=== PATIENT | female | born 1975 | race Caucasian/White ===

== ENCOUNTER → 2018-11-30 14:16 | Outpatient (CLI) | payer SELFPAY ==
--- NOTE | 2018-11-30 14:21 | US_ITS ---
STUDY: RENAL ULTRASOUND - COMPLETE REASON FOR EXAM: Female, 43 years old. Right flank pain TECHNIQUE: Ultrasound evaluation of the kidneys was performed with real-time and static roth-scale imaging. COMPARISON: None. FINDINGS: RIGHT KIDNEY: Normal location of the right kidney, which is normal in size. The right kidney measures 11.1 x 6.0 x 5.4 cm. There is a normal cortex of the right kidney. The renal cortex measures 1.3 cm. There is no right renal mass or cyst. There are no right renal calculi. There is no right hydronephrosis. DISTAL RIGHT URETER: There is non-visualization of the distal right ureter. There is a visualized right ureteral jet. LEFT KIDNEY: Normal location of the left kidney, which is normal in size. The left kidney measures 12.0 x 5.2 x 4.8 cm. There is a normal cortex of the left kidney. The renal cortex measures 1.3 cm. There is no left renal mass or cyst. There are no left renal calculi. There is no left hydronephrosis. DISTAL LEFT URETER: There is non-visualization of the distal left ureter. There is a visualized left ureteral jet. BLADDER: The distended urinary bladder has a volume of 287 ml. There is a normal wall thickness of the distended urinary bladder. There is no demonstrated mass within the urinary bladder. There are no demonstrated bladder calculi. US/Kidney and Bladder IMPRESSION: Normal ultrasound of the kidneys and urinary bladder. Electronically Signed: Concepción Villagran MD at 17:02 EDT , Service support ,
== END ==
PROVIDERS: Family Provider Family Medicine; PCP Family Medicine; Referring Provider Family Medicine; Visit Provider Family Medicine
DX: N10 Acute pyelonephritis (principal)
CPT/HCPCS: 76770

== ENCOUNTER → 2019-03-12 15:41 | Outpatient (CLI) | payer SELFPAY ==
[2019-03-12 17:42] LABS: Thyroid Stim Hormone (TSH) 1.36 uIU/mL (0.358-3.74)
[2019-03-12 17:52] LABS: Hemoglobin A1c 5.7 % (4.2-6.3)
== END ==
PROVIDERS: Family Provider Family Medicine; PCP Family Medicine; Visit Provider Family Medicine
DX: R73.01 Impaired fasting glucose (principal); N92.1 Excessive and frequent menstruation with irregular cycle
CPT/HCPCS: 36415; 83036; 84443

== ENCOUNTER → 2019-05-21 13:37 | Outpatient (CLI) | payer SELFPAY ==
[2019-05-21 10:44] VITALS: BMI 34.2
== END ==
PROVIDERS: Family Provider Family Medicine; PCP Family Medicine; Visit Provider Obstetrics & Gynecology
DX: N32.81 Overactive bladder (principal)
CPT/HCPCS: 87086; 87088

== ENCOUNTER → 2020-03-19 07:32 | Outpatient (CLI) | payer SELFPAY ==
[2019-05-21 10:44] VITALS: BMI 34.2
--- NOTE | 2020-03-19 07:33 | BI_ITS ---
MAMMOGRAPHY - BILATERAL SCREENING REASON FOR EXAM: Female, 44 years old. Routine annual screening examination. PERTINENT HISTORY: Mother with breast cancer. Occasional right breast tenderness. TECHNIQUE: Digital bilateral breast fay (3D mammographic acquisition) in the CC and MLO projections. 2-D mediolateral oblique (MLO) and craniocaudad (CC) views of both breasts were obtained. CAD: Full Field Digital Mammography with Computer Added Detection was performed. COMPARISON: Comparison is made with prior study dated 07/03/2013. FINDINGS: Breast Composition: There are scattered areas of fibroglandular density. There are no dominant masses or suspicious calcifications. Benign appearing bilateral axillary nodes. No other significant abnormalities are identified. There has been no significant change since the prior study. BI/SCREEN MAMM (CAD) W/FAY BILAT IMPRESSION: Stable bilateral screening mammogram. Yearly follow-up mammogram recommended. (A) ASSESSMENT CATEGORY: BIRADS Category 2: Benign. A letter regarding these results will be sent to the patient by the facility within 30 days. Approximately 10% of breast cancers are not detected by mammography. A normal mammogram should not delay biopsy of a clinically suspicious abnormality. [id number] Electronically Signed: Mihai Pete, at 8:41 EST , Service support ,
== END ==
PROVIDERS: PCP Family Medicine; Referring Provider Obstetrics & Gynecology; Visit Provider Obstetrics & Gynecology
DX: Z12.31 Encounter for screening mammogram for malignant neoplasm of breast (principal)
CPT/HCPCS: 77063; 77067

== ENCOUNTER → 2020-10-16 16:58 | Outpatient (CLI) | payer SELFPAY ==
[2020-10-16 13:47] VITALS: BMI 34.2
[2020-10-22 18:30] LABS: HPV APTIMA, High Risk Negative (Negative)
== END ==
PROVIDERS: PCP Family Medicine; Referring Provider Obstetrics & Gynecology; Visit Provider Obstetrics & Gynecology
DX: Z12.4 Encounter for screening for malignant neoplasm of cervix (principal)
CPT/HCPCS: 87624; 88175; G0145

== ENCOUNTER 2021-09-26 01:52 | Emergency (ER) | payer SELFPAY ==
[2021-09-26 01:56] VITALS: BP 151/72; PULSE 104; RESP 26; TEMP 37.1; O2SAT 97; BMI 31.8
--- NOTE | 2021-09-26 02:44 | CT_ITS ---
STUDY: CT BRAIN WITHOUT CONTRAST REASON FOR EXAM: Female, 46 years old. Head injury RADIATION DOSAGE (If Supplied By Facility): CTDIvol = ( 44.99 ) mGy, DLP = ( 779.24 ) mGycm TECHNIQUE: Transaxial CT imaging of the brain was performed without administration of intravenous contrast material. Individualized dose optimization techniques were used for this CT. COMPARISON: No relevant priors. FINDINGS: Normal soft tissue structures. Normal calvarium. Normal size ventricles and extra-axial spaces for the patient''s age. Normal white matter tracts of the cerebral hemispheres. Normal basal ganglia and thalami. Normal brainstem. Normal cerebellum. There is no intracranial hemorrhage. There are no findings of an acute ischemic infarction. Normal visualized paranasal sinuses. CT/Brain/Head without Contrast IMPRESSION: No acute abnormal intracranial finding. Electronically Signed: Gt Xiao MD at 3:25 EDT ,
--- NOTE | 2021-09-26 02:44 | EKG12_ITS ---
Test Reason : DYSRHYTHMIA Blood Pressure : / mmHG Vent. Rate : 090 BPM Atrial Rate : 090 BPM P-R Int : 126 ms QRS Dur : 082 ms QT Int : 372 ms P-R-T Axes : 058 032 038 degrees QTc Int : 455 ms Normal sinus rhythm Normal ECG Confirmed by JARROD BAUTISTA, RUTHANN ([id number]), digital editor ODIN GOODEN ([id number]) on 09/28/2021 10:10:01 A M Referred By: MARYLOU Confirmed By:MAURIZIO GARAY MD
--- NOTE | 2021-09-26 02:45 | EX.ED.DYSGE1 ---
HPI History of Present Illness Chief Complaint: Syncope Informant: patient Onset/Context/Timing Onset: Today Context: Sudden Onset Timing: Continuous Current Severity: Mild Maximum Severity: Moderate Narrative Narrative: 46-year-old female history of restless leg syndrome, depression and fibromyalgia. She smokes medical marijuana for fibromyalgia. States she took a hit of her medical marijuana tonight and felt lightheaded. [place] like she was going to pass out on her way to her bedroom she must of passed out because when she woke up she was on the floor of the kitchen on the dog's bowl. She said she has not bump on the left side back of her head. Prior to the incident she denied any chest pain, headache or abdominal pain. She has had no recent illness. Prior similar symptoms: No Recent Illness/Hospitalization: No [facility] Medical History Abnormal Pap smear of cervix Depression Fibromyalgia Genital herpes Restless leg syndrome Home Medications ropinirole 0.5 mg PO QHS 08/09/13 [History Last Taken Unknown] trazodone 100 mg PO DAILY 08/09/13 [History Last Taken Unknown] venlafaxine 150 mg PO DAILY 08/09/13 [History Last Taken Unknown] acyclovir 400 mg tablet 400 mg PO BID #60 tab 06/29/19 [Rx Last Taken Unknown] famotidine 40 mg tablet 40 mg PO DAILY 10/16/20 [History Last Taken Unknown] norgestimate 0.25 mg-ethinyl estradiol 35 mcg tablet 1 tab PO QDAY #28 tab 10/16/20 [Rx Last Taken Unknown] Allergy/AdvReac Type Severity Reaction Status Date / Time prednisone Allergy Nausea/Vom/ Verified 09/26/21 01:53 Diarrhea amitriptyline AdvReac Other Verified 09/26/21 01:53 Family History Grandfather Cancer Dementia Surgical History S/P dilation and curettage S/P LEEP S/P tonsillectomy Social History Smoking Status: Current every day smoker tobacco type: cigarettes alcohol intake: never substance use type: does not use caffeine: Yes what type of physical activity do you participate in: none seatbelt use: always do you feel safe at home: Yes additional social history: Awcnhzg[employer]Djk-[employer]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 Review of Systems ROS Unobtainable: Denies due to encephalopathy Constitutional Constitutional ED: Denies fever(s) Eyes Eyes: Denies change in vision ENT ENT ED: Denies ear pain Cardiovascular Cardiovascular: Denies chest pain Respiratory/Chest Respiratory/Chest: Denies dyspnea Gastrointestinal Gastrointestinal: Denies abdominal pain, diarrhea, nausea or vomiting Genitourinary Genitourinary ED: Denies dysuria Musculoskeletal Musculoskeletal: Denies myalgias Integumentary Denies rash Neurologic Neurologic: Denies headache(s) Psychiatric Psychiatric: Denies depression Endocrine Endocrinology: Denies polyuria Allergic/Immunologic Allergic/Immunologic ED: Denies urticaria EXAM Physical Exam Narrative Exam Narrative: Obese female no acute distress. Vital signs stable afebrile. Pulse ox 97% on room air no hypoxia. H EENT exam pupils are reactive light his motions are intact. No facial trauma. She has a small hematoma left posterior scalp. No laceration. No blood. C-spine nontender. Full range of motion to her neck. Back nontender. Spine nontender. Lungs clear to auscultation. Heart regular rhythm no murmur. Abdomen soft nontender. Normal bowel sounds no peritoneal signs. Moving all 4 extremities. 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 Dorsi plantarflexion intact. Nontender. Normal range of motion. Neurologically she is awake and alert with no focal motor deficits. Const Vital Signs: 09/26/21 01:56 09/26/21 02:00 09/26/21 02:56 Temperature 98.7 F Temperature Source Temporal Pulse Rate 104 H Respiratory Rate 26 H Respiratory Effort Normal Respiratory Pattern Normal Blood Pressure 151/72 H Blood Pressure Mean 98 Pulse Ox 97 Oxygen Delivery Method Room Air Room Air Positive well nourished, well developed and obese; Negative for cachectic, contractures or unkempt General Appearance ED: well developed and NAD; Negative for unkempt, cachectic, contractures, cyanotic, diaphoretic or pallor Nutritional Appearance: obese; Negative for cachectic HEENT Reports moist mucous membranes trauma and tenderness Eyes PERRL and EOMs intact bilaterally General Eye ED: Negative for pale conjunctiva or scleral icterus Neck no lymphadenopathy, supple and no JVD General: Negative for tenderness Chest Wall inspection of chest normal and palpation of chest normal Resp normal respiratory effort and clear to auscultation bilaterally Effort and Inspection: Negative for pain with movement Auscultation: Negative for rales, rhonchi or wheezes Cardio regular rate, regular rhythm, S1 normal heart sound, S2 normal heart sound and no murmurs GI normal to inspection, nondistended, normoactive bowel sounds, non-tender, non-distended and no masses Inspection: Negative for abdominal distention Auscultation: normoactive bowel sounds; Negative for hyperactive bowel sounds Palpation: soft; Negative for tender, guarding or rebound tenderness present Back/Spine no CVA tenderness General Back: Negative for CVA tenderness Cervical Spine: Negative for cervical spine tenderness Thoracic Spine / Upper Back: Negative for thoracic spinal tenderness or paraspinal muscle tenderness Lumbar Spine / Lower Back: Negative for lumbar spinal tenderness Extremity normal to inspection General Extremety ED: Negative for edema or tenderness General Extremity: Negative for edema Neuro oriented x3 and CN's II-XII intact bilaterally Neuro Narrative: GC passive 15. Sensorium / Orientation: alert; Negative for orientation impaired, lethargic or stuporous Motor Exam: strength 5/5 throughout Psych mental status grossly normal Appearance: Negative for unkempt Attitude: No agitated Mood & Affect: Negative for depressed, anxious or tearful Skin no rashes or lesions noted and no wounds General Skin Exam: Negative for jaundice or pallor MDM MDM MDM Narrative Medical decision making narrative: 46-year-old female that a syncopal episode which may be related to smoking medical marijuana. She fell and hit her head and was knocked unconscious. CAT scan labs are being obtained. Her exam is benign other than skull contusion. Repeat exam patient is doing well at 3:24 AM. She will be discharged to home. Lab Data Attestation: I reviewed the patient's lab results. Lab results narrative: CBC shows normal white count of 11. H&H 14 and 43. Platelets 253. CAT scan of the brain shows no acute abnormality. No bleed. Awaiting formal radiology interpretation. Chemistries unremarkable gap is 6 normal BUN and creatinine. Glucose 115. Troponin less than 3. Labs: Laboratory Results - last 24 hr 09/26/21 09/26/21 02:54 02:54 WBC 11.0 RBC 4.65 Hgb 14.5 Hct 43.2 MCV 92.9 MCH 31.2 MCHC 33.6 RDW Std Deviation 47.2 H RDW Coeff of Estella 14.0 Plt Count 253 MPV 10.4 Immature Gran % (Auto) 0.200 Neut % (Auto) 69.5 Lymph % (Auto) 24.6 [place] % (Auto) 4.4 Eos % (Auto) 1.0 Baso % (Auto) 0.3 Absolute Neuts (auto) 7.7 Absolute Lymphs (auto) 2.72 Nucleated RBC % 0 Sodium 139 Potassium 3.6 Chloride 107 Carbon Dioxide 26.0 Anion Gap 6 BUN 5 L Creatinine 0.82 Estim Creat Clear Calc 75.50 Est GFR (MDRD) Af Amer 96 Est GFR (MDRD) Non-Af 79 BUN/Creatinine Ratio 6.1 L Glucose 115 H Calcium 8.6 Troponin I High Sens < 3 L Radiography Chest X-Ray - ED: 1 View, Read by ED Physician, Heart, Lungs, Mediastinum, Bony Structures and No Acute Disease Diagnostic Testing: Chest x-ray, portable, single view interpreted myself shows no acute abnormality. Normal cardiac silhouette. No bony abnormalities. Normal mediastinum. Rhythm Strip Rhythm Strip: Sinus Rhythm Rate: 90 Ectopy: None EKG Initial EKG: Attestation: I personally reviewed and interpreted this EKG as follows: Interpretation: Sinus Rhythm and No Acute Injury Pattern Comments: Normal sinus rhythm rate of 98 no acute signs of AL, ischemia or dysrhythmia. Discharge Plan Triage Chief Complaint: Syncope ED Provider: Elder Holman Dx/Rx/DC Orders Clinical Impression: Syncope, Fall, Closed head injury Instructions: ED Head Injury (Adult), ED Fainting, Uncertain Cause Prescriptions: No Action famotidine [Pepcid] 40 mg tablet 40 mg PO DAILY RF: 0 norgestimate-ethinyl estradiol [Sprintec (28)] 0.25-35 mg-mcg tablet 1 tab PO QDAY Qty: 28 RF: 12 venlafaxine 150 MG capsule 150 mg PO DAILY RF: 0 trazodone 150 MG tablet 100 mg PO DAILY RF: 0 ropinirole 0.5 MG tablet 0.5 mg PO QHS RF: 0 acyclovir 400 mg tablet 400 mg PO BID Qty: 60 RF: 12 Primary Care Provider: Abundio Goldstein Referrals: Abundio Goldstein MD [Primary Care Provider] - 3-5 Days Activity Restrictions/Additional Instructions: All your labs, EKG CAT scan of your brain were unremarkable. Tylenol for any headaches. Ice to your scalp where you hit your head. Follow-up with your doctor if not improving. Disposition Disposition: Home, Self Care
[2021-09-26 03:00] LABS: Absolute Lymphocyte Count 2.72 X10^3/uL (0.83-4.51); Absolute Neutrophil Count 7.7 X10^3/uL (2.0-7.7); Basophil# 0.03 X10^3/uL; Basophil% 0.3 % (0-1); Eosinophil# 0.11 X10^3/uL; Hematocrit 43.2 % (37-47); Hemoglobin 14.5 g/dL (12.0-15.0); Lymphocyte # 2.72 X10^3/ul (0.83-4.51); Lymphocyte % 24.6 % (19-41); Mean Corp Hgb Conc 33.6 g/dL (32-36); Mean Corpuscular Hgb 31.2 pg (27.0-32.0); Mean Corpuscular Volume 92.9 fL (81-99); Mean Platelet Vol. 10.4 fl (6.2-12.0); Monocyte# 0.49 X10^3/uL; Monocyte% 4.4 % (0-10); NRBC Flagged by Analyzer 0 % (0-5); Neutrophil # 7.67 X10^3/uL (2.7-7.7); Neutrophil % 69.5 % (47-70); Platelet Count 253 K/mm3 (150-450); RBC Distribution Width SD 47.2 fl (35.1-43.9); Red Blood Count 4.65 M/mm3 (4.2-5.4)
--- NOTE | 2021-09-26 03:02 | RAD_ITS ---
STUDY: X-RAY CHEST REASON FOR EXAM: Female, 46 years old. Chest pain TECHNIQUE: Portable, upright, AP chest radiograph COMPARISON: 05/12/2016 FINDINGS: The lungs are clear and expanded. There is no demonstrated pleural abnormality. Normal size heart. Normal mediastinum and rut. Normal visualized pulmonary arteries. Normal visualized aortic arch and descending thoracic aorta. There is no demonstrated abnormality of the visualized soft tissue structures of the upper abdomen. RAD/Chest 1 View (Portable) IMPRESSION: No acute abnormal cardiopulmonary finding. Electronically Signed: Gt Xiao MD at 3:28 EDT ,
[2021-09-26 03:17] LABS: Anion Gap 6 (5-15); BUN 5 mg/dL (7-18); BUN/Creat Ratio 6.1 RATIO (10-20); Calcium,Total 8.6 mg/dL (8.5-10.1); Chloride 107 mmol/L (98-107); Creatinine, Serum 0.82 mg/dL (0.55-1.02); EST Glomerular Filtration Rate 79 mL/min (>60); Est Glom Filt Rate - Afr Amer 96 mL/min (>60); Glucose 115 mg/dL (74-106); Potassium 3.6 mmol/L (3.5-5.1); Sodium Level 139 mmol/L (136-145); Troponin-I HS < 3 pg/mL (3.0-54.0)
[2021-09-26 03:36] VITALS: BP 122/60; PULSE 84; RESP 16; O2SAT 96
== END 2021-09-26 03:37 | disposition home or self-care (01) ==
PROVIDERS: Emergency Provider Emergency Medicine; PCP Family Medicine; Visit Provider Emergency Medicine
DX: R55 Syncope and collapse (principal); S09.90XA Unspecified injury of head, initial encounter; M79.7 Fibromyalgia; F12.10 Cannabis abuse, uncomplicated; W18.30XA Fall on same level, unspecified, initial encounter; Y92.010 Kitchen of single-family (private) house as the place of occurrence of the external cause; F17.210 Nicotine dependence, cigarettes, uncomplicated; E66.9 Obesity, unspecified
CPT/HCPCS: 70450; 71045; 80048; 84484; 85025; 93005; 99283; A4216

== ENCOUNTER 2021-10-06 23:48 | Emergency (ER) | payer SELFPAY ==
[2021-10-06 23:49] VITALS: BP 140/75; PULSE 87; PULSE 89; RESP 15; RESP 16; TEMP 36.4; O2SAT 98; BMI 31.1
--- NOTE | 2021-10-07 01:06 | EKG12_ITS ---
Test Reason : SYNCOPE Blood Pressure : / mmHG Vent. Rate : 083 BPM Atrial Rate : 083 BPM P-R Int : 128 ms QRS Dur : 092 ms QT Int : 384 ms P-R-T Axes : 054 055 054 degrees QTc Int : 451 ms Normal sinus rhythm Normal ECG Confirmed by REMYUNDO BAUTISTA, DWAYNE ([id number]), legal editor ODIN GOODEN ([id number]) on 10/07/2021 9:05:57 AM Referred By: BERENICE Confirmed By:DWAYNE DWYER MD
[2021-10-07 01:48] LABS: Absolute Lymphocyte Count 2.91 X10^3/uL (0.83-4.51); Absolute Neutrophil Count 9.4 X10^3/uL (2.0-7.7); Basophil# 0.03 X10^3/uL; Basophil% 0.2 % (0-1); Eosinophil# 0.07 X10^3/uL; Eosinophils% 0.5 % (0-5); Hematocrit 42.3 % (37-47); Hemoglobin 14.5 g/dL (12.0-15.0); Lymphocyte # 2.91 X10^3/ul (0.83-4.51); Lymphocyte % 22.3 % (19-41); Mean Corp Hgb Conc 34.3 g/dL (32-36); Mean Corpuscular Hgb 32.3 pg (27.0-32.0); Mean Corpuscular Volume 94.2 fL (81-99); Mean Platelet Vol. 10.3 fl (6.2-12.0); Monocyte# 0.59 X10^3/uL; Monocyte% 4.5 % (0-10); NRBC Flagged by Analyzer 0 % (0-5); Neutrophil # 9.39 X10^3/uL (2.7-7.7); Neutrophil % 72.2 % (47-70); Platelet Count 265 K/mm3 (150-450); RBC Distribution Width CV 13.7 % (11.6-14.6); RBC Distribution Width SD 47.3 fl (35.1-43.9); Red Blood Count 4.49 M/mm3 (4.2-5.4)
[2021-10-07 01:59] LABS: D-Dimer Quantitative (DVT/PE) 0.43 FEU/ug/m (0.27-0.49)
[2021-10-07 02:02] LABS: Anion Gap 6 (5-15); BUN 8 mg/dL (7-18); Calcium,Total 8.8 mg/dL (8.5-10.1); Chloride 106 mmol/L (98-107); EST Glomerular Filtration Rate 81 mL/min (>60); Est Glom Filt Rate - Afr Amer 98 mL/min (>60); Estimated Creatinine Clearance 77.39 ml/min; Glucose 105 mg/dL (74-106); Potassium 3.8 mmol/L (3.5-5.1); Sodium Level 139 mmol/L (136-145)
[2021-10-07 02:06] VITALS: BP 125/56; BP 132/74; BP 137/85; PULSE 77; PULSE 85; PULSE 89
[2021-10-07 02:11] VITALS: BP 132/74; PULSE 89; RESP 20; O2SAT 96
[2021-10-07] MEDS: Acetaminophen 500 MG Tablet 1000 MG PO (02:20)
[2021-10-07] MEDS: 0.9% Normal Saline 1,000 ML 999 ML IV (02:20)
--- NOTE | 2021-10-07 02:24 | EDS_ITS ---
HPI History of Present Illness Chief Complaint: Syncope Informant: patient Narrative Narrative: Patient is a 46-year-old female with history of fibromyalgia and restless leg syndrome presenting after syncopal episode. Patient was going to bed and her friend was helping her walk from the porch when she passed out. She members waking up on the porch floor. She does not complain of a mild headache. Patient states she had a similar episode of syncope about 2 weeks ago with the same situation where she had smoked marijuana, went to go to bed and then passed out. She denies any leg swelling, history of DVT or PE. She denies any chest pain or shortness of breath. Denies any other complaints at this time. I denies any recent medication changes. States she did smoking the same batch of marijuana for about 6 weeks [facility] Medical History Abnormal Pap smear of cervix Depression Fibromyalgia Genital herpes Restless leg syndrome Home Medications ropinirole 0.5 mg PO QHS 08/09/13 [History Last Taken Unknown] trazodone 100 mg PO DAILY 08/09/13 [History Last Taken Unknown] venlafaxine 150 mg PO DAILY 08/09/13 [History Last Taken Unknown] acyclovir 400 mg tablet 400 mg PO BID #60 tab 06/29/19 [Rx Last Taken Unknown] famotidine 40 mg tablet 40 mg PO DAILY 10/16/20 [History Last Taken Unknown] norgestimate 0.25 mg-ethinyl estradiol 35 mcg tablet 1 tab PO QDAY #28 tab 10/16/20 [Rx Last Taken Unknown] Allergy/AdvReac Type Severity Reaction Status Date / Time prednisone Allergy Nausea/Vom/ Verified 10/06/21 23:49 Diarrhea amitriptyline AdvReac Other Verified 10/06/21 23:49 Family History Grandfather Cancer Dementia Surgical History S/P dilation and curettage S/P LEEP S/P tonsillectomy Social History Smoking Status: Current every day smoker tobacco type: cigarettes alcohol intake: never substance use type: does not use caffeine: Yes what type of physical activity do you participate in: none seatbelt use: always do you feel safe at home: Yes additional social history: [employer] 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 ED Constitutional Constitutional ED: Reports other Details: syncope ; Denies chills or fever(s) Eyes Eyes: Denies blurry vision or change in vision ENT ENT ED: Denies rhinorrhea or sore throat Cardiovascular Cardiovascular: Denies chest pain or palpitations Respiratory/Chest Respiratory/Chest: Denies dyspnea Gastrointestinal Gastrointestinal: Denies abdominal pain, diarrhea, melena, nausea or vomiting Genitourinary Genitourinary ED: Reports urinary frequency; Denies dysuria or hematuria Musculoskeletal Musculoskeletal: Reports myalgias Integumentary Denies rash Neurologic Neurologic: Reports headache(s); Denies paresthesias or weakness Psychiatric Psychiatric: Denies depression EXAM Physical Exam Const Vital Signs: 10/06/21 23:49 10/07/21 00:27 10/07/21 01:28 Temperature 97.6 F L Temperature Source Temporal Pulse Rate 87 Pulse Rate [Lying] Pulse Rate [Sitting (for 1 minute prior to obtaining)] Pulse Rate [Standing (for 1 minute prior to obtaining)] Respiratory Rate 16 Respiratory Effort Normal Respiratory Pattern Normal Blood Pressure 140/75 H Blood Pressure [Lying] Blood Pressure [Sitting (for 1 minute prior to obtaining)] Blood Pressure [Standing (for 1 minute prior to obtaining)] Blood Pressure Mean 96 Blood Pressure Mean [Lying] Blood Pressure Mean [Sitting (for 1 minute prior to obtaining)] Blood Pressure Mean [Standing (for 1 minute prior to obtaining)] Pulse Ox 98 Oxygen Delivery Method Room Air Room Air 10/07/21 02:06 10/07/21 02:11 10/07/21 04:00 Temperature Temperature Source Pulse Rate 89 Pulse Rate [Lying] 77 Pulse Rate [Sitting (for 1 minute prior to obtaining)] 85 Pulse Rate [Standing (for 1 minute prior to obtaining)] 89 Respiratory Rate 20 H 15 Respiratory Effort Respiratory Pattern Blood Pressure 132/74 H Blood Pressure [Lying] 125/56 H Blood Pressure [Sitting (for 1 minute prior to obtaining)] 137/85 H Blood Pressure [Standing (for 1 minute prior to obtaining)] 132/74 H Blood Pressure Mean 93 Blood Pressure Mean [Lying] 79 Blood Pressure Mean [Sitting (for 1 minute prior to obtaining)] 102 Blood Pressure Mean [Standing (for 1 minute prior to obtaining)] 93 Pulse Ox 96 Oxygen Delivery Method Room Air Room Air Positive well nourished and well developed General Appearance ED: well developed and NAD HEENT Reports TM's clear and moist mucous membranes Negative for trauma Tympanic Membrane ED: Yes TM's clear Eyes PERRL and EOMs intact bilaterally Neck supple and no JVD General: Negative for tenderness Chest Wall inspection of chest normal Resp normal respiratory effort and clear to auscultation bilaterally Cardio regular rate, regular rhythm and no murmurs GI normal to inspection, nondistended, normoactive bowel sounds and non-tender Back/Spine no CVA tenderness Extremity normal to inspection General Extremety ED: Negative for edema or tenderness General Extremity: Negative for edema Neuro oriented x3 and CN's II-XII intact bilaterally Sensorium / Orientation: alert Motor Exam: Negative for general weakness Psych mental status grossly normal Skin no rashes or lesions noted and no wounds MDM MDM MDM Narrative Medical decision making narrative: 46-year-old female evaluated for episode of syncope. She another episode 2 weeks ago. Both times they were associated with a smoking marijuana and then trying to walk to back. There was a sensation of lightheadedness prior to this. Work-up was obtained looking for other causes of syncope. Her EKG does not show any acute ischemic process or strain pattern. I do not think this is ACS. She does not have any associated chest pain. Patient is low risk for PE however she is on control. D-dimer was obtained which is normal. BMP unremarkable. CBC has a leukocytosis of 13.0 which is nonspecific. Hemoglobin and platelets are normal. Urinalysis is not consistent with infection. Chest x-ray is normal. Patient's symptomatic during orthostatics and does have a jump in her heart rate from 79-1 02 from laying to sitting. This stable from sitting to standing. Patient is given a liter of fluid and does have improvement. Patient does comment that because of her chronic urinary frequency/overactive bladder, she will fluid restrict her self. She notes is possible she did get dehydrated today especially as its been quite hot out. Patient will increase her fluid intake. She feels much better and is ready to go home. Patient encouraged to follow-up with primary care doctor. Counseled on return precautions. Patient discharged home in stable condition. Lab Data Attestation: I reviewed the patient's lab results. Labs: Laboratory Results - last 24 hr 10/07/21 10/07/21 10/07/21 01:40 01:40 01:40 WBC 13.0 H RBC 4.49 Hgb 14.5 Hct 42.3 MCV 94.2 MCH 32.3 H MCHC 34.3 RDW Std Deviation 47.3 H RDW Coeff of Estella 13.7 Plt Count 265 MPV 10.3 Immature Gran % (Auto) 0.300 Neut % (Auto) 72.2 H Lymph % (Auto) 22.3 Hancock % (Auto) 4.5 Eos % (Auto) 0.5 Baso % (Auto) 0.2 Absolute Neuts (auto) 9.4 H Absolute Lymphs (auto) 2.91 Nucleated RBC % 0 D-Dimer Quant (PE/DVT) 0.43 Sodium 139 Potassium 3.8 Chloride 106 Carbon Dioxide 27.0 Anion Gap 6 BUN 8 Creatinine 0.80 Estim Creat Clear Calc 77.39 Est GFR (MDRD) Af Amer 98 Est GFR (MDRD) Non-Af 81 BUN/Creatinine Ratio 10.0 Glucose 105 Calcium 8.8 Urine Color Urine Clarity Urine pH Ur Specific Hilger Urine Protein Urine Glucose (UA) Urine Ketones Urine Occult Blood Urine Nitrite Urine Bilirubin Urine Urobilinogen Ur Leukocyte Esterase Urine RBC Urine WBC Ur Squamous Epith Cells Urine Bacteria Urine Mucus 10/07/21 02:55 WBC RBC Hgb Hct MCV MCH MCHC RDW Std Deviation RDW Coeff of Estella Plt Count MPV Immature Gran % (Auto) Neut % (Auto) Lymph % (Auto) Hancock % (Auto) Eos % (Auto) Baso % (Auto) Absolute Neuts (auto) Absolute Lymphs (auto) Nucleated RBC % D-Dimer Quant (PE/DVT) Sodium Potassium Chloride Carbon Dioxide Anion Gap BUN Creatinine Estim Creat Clear Calc Est GFR (MDRD) Af Amer Est GFR (MDRD) Non-Af BUN/Creatinine Ratio Glucose Calcium Urine Color Yellow Urine Clarity Clear Urine pH 6.5 Ur Specific Hilger 1.010 Urine Protein Negative Urine Glucose (UA) Normal Urine Ketones Negative Urine Occult Blood 10 H Urine Nitrite Negative Urine Bilirubin Negative Urine Urobilinogen Normal Ur Leukocyte Esterase 25 H Urine RBC 0-5 SEEN Urine WBC 0-5 SEEN Ur Squamous Epith Cells 0-5 SEEN Urine Bacteria 0 SEEN Urine Mucus 0 SEEN Radiography Chest X-Ray - ED: 1 View, Read by ED Physician, Read by Radiologist, Normal and No Acute Disease Diagnostic Testing: Clinical Impression(s) from Imaging Studies Brain CT 10/07/21 02:26 IMPRESSION: Negative head/brain CT without intravenous contrast. Electronically Signed: Royce Lui MD at 3:13 EDT Reading Location ID and State: [facility] / [place] Tel , Service support , Rhythm Strip Rhythm Strip: Sinus Rhythm Rate: 83 Ectopy: None EKG Initial EKG: Attestation: I personally reviewed and interpreted this EKG as follows: Interpretation: Sinus Rhythm Comments: Normal sinus rhythm at a rate of 83 Normal axis Normal intervals Normal ST segments Discharge Plan Triage Chief Complaint: Syncope ED Provider: Nikole Orozco Dx/Rx/DC Orders Clinical Impression: Syncope and collapse, Orthostatic dizziness Instructions: ED Hypotension, Orthostatic, ED Fainting, Uncertain Cause Prescriptions: No Action famotidine [Pepcid] 40 mg tablet 40 mg PO DAILY RF: 0 norgestimate-ethinyl estradiol [Sprintec (28)] 0.25-35 mg-mcg tablet 1 tab PO QDAY Qty: 28 RF: 12 venlafaxine 150 MG capsule 150 mg PO DAILY RF: 0 trazodone 150 MG tablet 100 mg PO DAILY RF: 0 ropinirole 0.5 MG tablet 0.5 mg PO QHS RF: 0 acyclovir 400 mg tablet 400 mg PO BID Qty: 60 RF: 12 Primary Care Provider: Abundio Goldstein Referrals: Abundio Goldstein MD [Primary Care Provider] - Disposition Disposition: Home, Self Care
--- NOTE | 2021-10-07 02:26 | CT_ITS ---
EXAM: CT HEAD WITHOUT INTRAVENOUS CONTRAST CLINICAL INDICATION: syncope, head injury TECHNIQUE: Multiple axial images were obtained of the head without intravenous contrast. This CT exam was performed using one or more of the following dose reduction techniques: automated exposure control, adjustment of the mA and/or kV according to patient size, and/or use of iterative reconstruction technique. This report was created using [email or web address] report generation technology. COMPARISON: 09/26/2021 FINDINGS: BRAIN AND EXTRA-AXIAL SPACES: Unremarkable. No intra- or extra-axial hemorrhage. No evidence of acute infarct. No intracranial mass or mass effect. There is preservation of the germain/white matter interface. Posterior fossa structures are unremarkable. Ventricles are appropriate for age. No hydrocephalus. Basal cisterns are patent. BONES/JOINTS: Unremarkable. No discrete lytic or blastic abnormalities. SINUSES: Unremarkable as visualized. Clear. MASTOID AIR CELLS: Unremarkable. Clear. ORBITS: Visualized globes, extraocular muscles, optic nerves and retrobulbar fat appear unremarkable. CT/Brain/Head without Contrast IMPRESSION: Negative head/brain CT without intravenous contrast. Electronically Signed: Royce Lui MD at 3:13 EDT ,
[2021-10-07 03:30] LABS: Bacteria 0 SEEN /hpf (None Seen); Mucous, Urine 0 SEEN /hpf (<or=2+)
[2021-10-07 04:00] VITALS: RESP 15
[2021-10-07 04:01] LABS: Color, Urine Yellow (Yellow); Glucose, Dipstick Normal (Normal); Ketone-Dipstick Negative (Negative); Leukocyte Esterase-Dipstick 25 /ul (Negative); Nitrite-Dipstick Negative (Negative); Occult Blood-Urine 10 /ul (Negative); Protein-Dipstick Negative (Negative); Urine Bilirubin Dipstick Negative (Negative); Urine Clarity Clear (Clear); Urine Urobilinogen Normal (Normal); Urine pH 6.5 (5.0 - 8.0)
[2021-10-07 04:08] LABS: Red Blood Cells-Urine 0-5 SEEN /hpf (0-5); Squamous Epithelial Cells - UA 0-5 SEEN /hpf (5-10); White Blood Cells 0-5 SEEN /hpf (0-5)
[2021-10-07 04:36] VITALS: BP 129/65; PULSE 71; RESP 18; O2SAT 98
== END 2021-10-07 04:41 | disposition home or self-care (01) ==
PROVIDERS: Emergency Provider Emergency Medicine; PCP Family Medicine; Visit Provider Emergency Medicine
DX: R55 Syncope and collapse (principal); R42 Dizziness and giddiness; F17.210 Nicotine dependence, cigarettes, uncomplicated; F12.90 Cannabis use, unspecified, uncomplicated
CPT/HCPCS: 70450; 80048; 81001; 85025; 85379; 93005; 99285; J7030; A4216

== ENCOUNTER → 2022-09-28 | Outpatient (CLI) | payer SELFPAY ==
[2022-09-28 12:15] LABS: Absolute Lymphocyte Count 3.13 X10^3/uL (0.83-4.51); Absolute Neutrophil Count 4.8 X10^3/uL (2.0-7.7); Basophil# 0.02 X10^3/uL; Basophil% 0.2 % (0-1); Eosinophil# 0.14 X10^3/uL; Eosinophils% 1.6 % (0-5); Hematocrit 45.1 % (37-47); Hemoglobin 14.4 g/dL (12.0-15.0); Lymphocyte # 3.13 X10^3/ul (0.83-4.51); Lymphocyte % 36.7 % (19-41); Mean Corp Hgb Conc 31.9 g/dL (32-36); Mean Corpuscular Hgb 31.2 pg (27.0-32.0); Mean Corpuscular Volume 97.6 fL (81-99); Mean Platelet Vol. 11.2 fl (6.2-12.0); Monocyte# 0.39 X10^3/uL; Monocyte% 4.6 % (0-10); NRBC Flagged by Analyzer 0 % (0-5); Neutrophil # 4.81 X10^3/uL (2.7-7.7); Neutrophil % 56.5 % (47-70); Platelet Count 256 K/mm3 (150-450); RBC Distribution Width CV 14.4 % (11.6-14.6); Red Blood Count 4.62 M/mm3 (4.2-5.4); White Blood Count 8.5 K/mm3 (4.4-11.0)
[2022-09-28 12:52] LABS: Vitamin B12 210 pg/mL (211-911)
[2022-09-28 13:36] LABS: ALB/GLOB Ratio 0.8 RATIO (0.9-2.4); AST(SGOT) 13 U/L (15-37); Alanine Aminotransfer ALT/SGPT 18 U/L (13-56); Albumin, Serum 3.3 g/dL (3.2-5.0); Alkaline Phosphatase 56 U/L (45-117); Anion Gap 6 (5-15); BUN 8 mg/dL (7-18); BUN/Creat Ratio 9.5 RATIO (10-20); Calcium,Total 8.8 mg/dL (8.5-10.1); Chloride 107 mmol/L (98-107); Cholesterol 241 mg/dL (200); Creatinine, Serum 0.84 mg/dL (0.55-1.02); EST Glomerular Filtration Rate 76 mL/min (>60); Est Glom Filt Rate - Afr Amer 92 mL/min (>60); Globulin 3.9 g/dL (2.2-4.2); Glucose 96 mg/dL (74-106); High Density Lipoprotein 54 mg/dL; Potassium 4.1 mmol/L (3.5-5.1); Protein, Total 7.2 g/dL (6.4-8.2); Sodium Level 140 mmol/L (136-145); Triglycerides 200 mg/dL; Very Low Density Lipoprotein 40 mg/dL (5-40)
== END | disposition home or self-care (01) ==
LOC: BFHLAB 10:54
PROVIDERS: PCP Nurse Practitioner Family; Referring Provider Nurse Practitioner Family; Visit Provider Nurse Practitioner Family
DX: Z00.00 Encounter for general adult medical examination without abnormal findings (principal); E55.9 Vitamin D deficiency, unspecified
CPT/HCPCS: 36415; 80053; 80061; 82306; 82607; 85025

== ENCOUNTER → 2022-10-19 | Outpatient (CLI) | payer SELFPAY ==
--- NOTE | 2022-10-19 09:12 | BI_ITS ---
MAMMOGRAPHY - BILATERAL SCREENING REASON FOR EXAM: Female, 47 years old. Routine annual screening examination. PERTINENT HISTORY: Mother with breast cancer. TECHNIQUE: Digital bilateral breast fay (3D mammographic acquisition) in the CC and MLO projections. 2-D mediolateral oblique (MLO) and craniocaudad (CC) views of both breasts were obtained. CAD: Full Field Digital Mammography with Computer Added Detection was performed. COMPARISON: Comparison is made with prior study of March 19, 2020 and April 02, 2014. FINDINGS: Breast Composition: There are scattered areas of fibroglandular density. There are no dominant masses or suspicious calcifications. Stable small benign-appearing bilateral axillary lymph nodes. No other significant abnormalities are identified. There has been no significant change since the prior study. BI/SCRN MAMM (CAD)W/FAY BILAT IMPRESSION: Stable bilateral screening mammogram. Yearly follow-up mammogram recommended. (A) ASSESSMENT CATEGORY: BIRADS Category 2: Benign. A letter regarding these results will be sent to the patient by the facility within 30 days. Approximately 10% of breast cancers are not detected by mammography. A normal mammogram should not delay biopsy of a clinically suspicious abnormality. [id number] Electronically Signed: Mihai Pete MD at 10:44 EDT ,
== END | disposition home or self-care (01) ==
LOC: OPBI 09:07
PROVIDERS: PCP Nurse Practitioner Family; Referring Provider Nurse Practitioner Family; Visit Provider Nurse Practitioner Family
DX: Z12.31 Encounter for screening mammogram for malignant neoplasm of breast (principal)
CPT/HCPCS: 77063; 77067

== ENCOUNTER → 2023-03-15 | Outpatient (CLI) | payer SELFPAY ==
--- NOTE | 2023-03-15 10:31 | RAD_ITS ---
STUDY: X-RAY - ABDOMEN/PELVIS REASON FOR EXAM: Female, 47 years old. RUQ/LUQ PAIN, RULE OUT RIB FRACTURE TECHNIQUE: Frontal views COMPARISON: None. FINDINGS: Normal visualized lung bases. There is an unremarkable bowel gas pattern. There is mild colonic fecal retention. There is no demonstrated free abdominal air. The visualized liver, spleen and kidneys are grossly normal in size and morphology. Normal soft tissue structures. Normal visualized osseous structures. RAD/Abdomen Single View IMPRESSION: Mild colonic fecal retention. No displaced fracture is seen of the visualized ribs. Electronically Signed: Adi Flynn DO at 23:55 EST ,
[2023-03-15 12:18] LABS: Absolute Lymphocyte Count 3.31 X10^3/uL (0.83-4.51); Absolute Neutrophil Count 4.5 X10^3/uL (2.0-7.7); Basophil# 0.04 X10^3/uL; Basophil% 0.5 % (0-1); Eosinophil# 0.18 X10^3/uL; Eosinophils% 2.1 % (0-5); Hematocrit 44.8 % (37-47); Hemoglobin 14.1 g/dL (12.0-15.0); Lymphocyte # 3.31 X10^3/ul (0.83-4.51); Lymphocyte % 39.2 % (19-41); Mean Corp Hgb Conc 31.5 g/dL (32-36); Mean Corpuscular Hgb 31.3 pg (27.0-32.0); Mean Corpuscular Volume 99.3 fL (81-99); Mean Platelet Vol. 11.3 fl (6.2-12.0); Monocyte# 0.43 X10^3/uL; Monocyte% 5.1 % (0-10); NRBC Flagged by Analyzer 0 % (0-5); Neutrophil # 4.48 X10^3/uL (2.7-7.7); Platelet Count 330 K/mm3 (150-450); RBC Distribution Width CV 13.6 % (11.6-14.6); RBC Distribution Width SD 49.6 fl (35.1-43.9); Red Blood Count 4.51 M/mm3 (4.2-5.4); White Blood Count 8.5 K/mm3 (4.4-11.0)
[2023-03-15 12:53] LABS: ALB/GLOB Ratio 0.8 RATIO (0.9-2.4); AST(SGOT) 17 U/L (15-37); Alanine Aminotransfer ALT/SGPT 18 U/L (13-56); Albumin, Serum 3.3 g/dL (3.2-5.0); Alkaline Phosphatase 62 U/L (45-117); Anion Gap 3 (5-15); BUN 11 mg/dL (7-18); BUN/Creat Ratio 12.8 RATIO (10-20); Calcium,Total 9.3 mg/dL (8.5-10.1); Chloride 108 mmol/L (98-107); Creatinine, Serum 0.86 mg/dL (0.55-1.02); EST Glomerular Filtration Rate 74 mL/min (>60); Est Glom Filt Rate - Afr Amer 90 mL/min (>60); Globulin 4.3 g/dL (2.2-4.2); Glucose 113 mg/dL (74-106); Lipase 36 U/L (13-75); Protein, Total 7.6 g/dL (6.4-8.2); Sodium Level 139 mmol/L (136-145)
== END | disposition home or self-care (01) ==
PROVIDERS: PCP Nurse Practitioner Family; Referring Provider Nurse Practitioner Family; Visit Provider Nurse Practitioner Family
DX: R10.11 Right upper quadrant pain (principal); R10.12 Left upper quadrant pain
CPT/HCPCS: 36415; 74018; 80053; 83690; 85025

== ENCOUNTER → 2023-03-19 | Outpatient (CLI) | payer SELFPAY ==
--- NOTE | 2023-03-19 11:00 | US_ITS ---
INDICATION: ABD PAIN EXAMINATION: Ultrasound US Abdomen Complete TECHNIQUE: Johnson-scale and color Doppler imaging was performed of the abdomen. COMPARISON: FINDINGS: LIVER: There is normal echotexture measuring 18.7 cm. There are hyperechoic right hepatic nodules likely a hemangioma up to 3.1 cm. No intrahepatic biliary ductal dilatation. There is no free fluid. GALLBLADDER AND BILIARY TREE: No shadowing gallstone, pericholecystic fluid or gallbladder wall thickening is demonstrated. The proximal common bile duct measures 3.9 mm, which is within normal limits for the patient''s age. SONOGRAPHIC VEGA''S SIGN: Negative. PANCREAS: No focal abnormality is demonstrated in the pancreas. No pancreatic ductal dilatation. SPLEEN: The spleen is normal in size and homogeneous in echotexture. RIGHT KIDNEY: 12.2 x 6.7 x 6 cm. The cortex is 13 mm. There is no hydronephrosis. No shadowing calculus, focal lesion, or perinephric collection is demonstrated. LEFT KIDNEY: 11.6 x 5.9 x 6.4 cm. The cortex is 18 mm. There is no hydronephrosis. No shadowing calculus, focal lesion, or perinephric collection is demonstrated. VESSELS: Submitted longitudinal images of the intra-abdominal aorta demonstrate no gross abnormalities and are unremarkable. The IVC is patent. US/Abdomen Complete IMPRESSION: Probable hepatic hemangiomas. Electronically Signed: Adi Flynn DO at 19:18 EST ,
== END | disposition home or self-care (01) ==
LOC: US 10:41
PROVIDERS: PCP Nurse Practitioner Family; Visit Provider Nurse Practitioner Family
DX: R10.11 Right upper quadrant pain (principal); R10.12 Left upper quadrant pain
CPT/HCPCS: 76700

== ENCOUNTER 2023-03-24 23:24 | Emergency (ER) | payer SELFPAY ==
[2023-03-24 23:25] VITALS: BP 151/87; PULSE 99; RESP 16; TEMP 36.6; O2SAT 97; BMI 33.5
[2023-03-24 23:47] LABS: Absolute Lymphocyte Count 5.12 X10^3/uL (0.83-4.51); Absolute Neutrophil Count 5.4 X10^3/uL (2.0-7.7); Basophil# 0.04 X10^3/uL; Basophil% 0.4 % (0-1); Eosinophil# 0.18 X10^3/uL; Eosinophils% 1.6 % (0-5); Hematocrit 43.4 % (37-47); Hemoglobin 14.5 g/dL (12.0-15.0); Lymphocyte # 5.12 X10^3/ul (0.83-4.51); Lymphocyte % 45.3 % (19-41); Mean Corp Hgb Conc 33.4 g/dL (32-36); Mean Corpuscular Hgb 31.3 pg (27.0-32.0); Mean Corpuscular Volume 93.7 fL (81-99); Mean Platelet Vol. 10.3 fl (6.2-12.0); Monocyte# 0.56 X10^3/uL; NRBC Flagged by Analyzer 0 % (0-5); Neutrophil # 5.38 X10^3/uL (2.7-7.7); Neutrophil % 47.4 % (47-70); POSITIVE DIFFERENTIAL YES; POSITIVE MORPHOLOGY YES; Platelet Count 319 K/mm3 (150-450); RBC Distribution Width CV 13.8 % (11.6-14.6); RBC Distribution Width SD 46.6 fl (35.1-43.9); Red Blood Count 4.63 M/mm3 (4.2-5.4); White Blood Count 11.3 K/mm3 (4.4-11.0)
[2023-03-24 23:53] LABS: Differential Indicated SCAN CRITERIA MET
[2023-03-24 23:54] LABS: Color, Urine Yellow (Yellow); Glucose, Dipstick Normal (Normal); Ketone-Dipstick 5 mg/dl (Negative); Leukocyte Esterase-Dipstick 100 /ul (Negative); Nitrite-Dipstick Negative (Negative); Occult Blood-Urine 25 /ul (Negative); Protein-Dipstick 30 mg/dl (Negative); Specific Gravity, Urine 1.025 (1.002-1.030); Urine Bilirubin Dipstick Negative (Negative); Urine Clarity Clear (Clear); Urine Urobilinogen 1 mg/dl (Normal)
[2023-03-24 23:57] LABS: Internal QC Validated? YES +Cl - CLEAR BKGD; Pregnancy, Serum, hCG Quali. NEGATIVE Negative
[2023-03-25 00:01] LABS: Bacteria 2+ /hpf (None Seen); Mucous, Urine 2+ /hpf (<or=2+); Red Blood Cells-Urine 0-5 SEEN /hpf (0-5); Squamous Epithelial Cells - UA 0-5 SEEN /hpf (5-10); White Blood Cells 10-25 SEEN /hpf (0-5)
[2023-03-25 00:05] LABS: ALB/GLOB Ratio 0.9 RATIO (0.9-2.4); AST(SGOT) 13 U/L (15-37); Alanine Aminotransfer ALT/SGPT 16 U/L (13-56); Albumin, Serum 3.4 g/dL (3.2-5.0); Alkaline Phosphatase 57 U/L (45-117); Anion Gap 9 (5-15); BUN 5 mg/dL (7-18); BUN/Creat Ratio 6.1 RATIO (10-20); Chloride 106 mmol/L (98-107); Creatinine, Serum 0.82 mg/dL (0.55-1.02); EST Glomerular Filtration Rate 78 mL/min (>60); Est Glom Filt Rate - Afr Amer 94 mL/min (>60); Estimated Creatinine Clearance 74.68 ml/min; Globulin 3.7 g/dL (2.2-4.2); Glucose 125 mg/dL (74-106); Potassium 3.8 mmol/L (3.5-5.1); Protein, Total 7.1 g/dL (6.4-8.2); Sodium Level 139 mmol/L (136-145)
[2023-03-25 01:06] LABS: Differential Comment SCANNED; Reactive Lymphocyte RARE
[2023-03-25 01:53] VITALS: RESP 16
--- NOTE | 2023-03-25 03:34 | CT_ITS ---
INDICATION: Abdominal pain EXAMINATION: CT Abdomen And Pelvis W/ Contrast Injection TECHNIQUE: Helically acquired images were obtained of the abdomen and pelvis following IV contrast. 2-D reconstructions reviewed. A radiation dose optimization technique was used for this scan. IV Contrast dosage and agent: 100 cc [id number] Oral contrast: None. COMPARISON: Abdominal ultrasound from 03/19/2023 FINDINGS: LOWER CHEST: Mild scarring right middle lobe. Heart size within normal limits. LIVER: Faint, hazy low-attenuation lesion within lateral aspect inferior right lobe of liver measures approximately 1.3 cm diameter (series 2 axial image 53 and coronal reconstructions series 601 image 65). Liver is normal morphology. GALLBLADDER AND BILIARY TREE: No calcified gallstones identified. No gallbladder wall edema demonstrated. No significant biliary ductal dilation. PANCREAS: No discrete mass or peripancreatic edema. SPLEEN: Normal size without concerning lesion. ADRENAL GLANDS: Unremarkable. KIDNEYS AND URETERS: Normal renal size and position. No perinephric edema or hydronephrosis. No concerning lesion. PERITONEUM: No significant free fluid. No peritoneal free air detected. RETROPERITONEUM: No retroperitoneal mass or pathologic fluid collection. BOWEL: Normal appendix medial to cecum within right lower quadrant. No bowel obstruction or significant bowel thickening. Scattered colonic diverticula. No focal inflammatory change. LYMPH NODES: No enlarged mesenteric or retroperitoneal lymph nodes. VESSELS: No acute findings. No abdominal aortic aneurysm. URINARY BLADDER: Unremarkable as visualized. REPRODUCTIVE ORGANS: No pelvic mass or large adnexal cyst. ABDOMINAL WALL: No acute findings or significant hernia defect. BONES: Mild degenerative changes along spine. CT/Abdomen/Pelvis W IV Cont ONLY IMPRESSION: 1. No evidence of acute intra-abdominal abnormality. 2. Subtle small low-attenuation lesion within liver most likely benign hemangioma (as described in prior ultrasound report). Differential also includes small hepatic adenoma. Follow-up as clinically warranted. 3. Mild colonic diverticulosis. Electronically Signed: Mahad Bassett MD at 5:05 EST ,
[2023-03-25] MEDS: 0.9% Normal Saline (1000mL) 1,000 ML 999 ML IV (03:47)
[2023-03-25] MEDS: Ondansetron 4 MG/2 ML Vial IV (03:47)
[2023-03-25] MEDS: Morphine 4 MG/ML Syringe IV (03:47)
[2023-03-25] MEDS: Ceftriaxone 1 GM/50 ML BAG IV (04:09)
[2023-03-25 04:19] LABS: Lipase 32 U/L (13-75)
--- NOTE | 2023-03-25 05:36 | EDS_ITS ---
HPI History of Present Illness Chief Complaint: Abd Pain Informant: patient Narrative Narrative: Patient is a 47-year-old female with past medical history of depression and fibromyalgia. She states she has been dealing with generalized abdominal pain since the beginning of the month. She reports that she was evaluated initially at her family physician who then had a complete abdominal ultrasound performed which showed a liver hemangioma but otherwise no acute findings. Patient states her symptoms have persisted she went back for repeat evaluation and there was question of potential hernia. She states that she has had no symptoms treatment with [id number] meds and therefore based on the persistent nature of her pain presents for evaluation [facility] Medical History Abnormal Pap smear of cervix Depression Fibromyalgia Genital herpes Restless leg syndrome Home Medications ropinirole 0.5 mg tablet 0.5 mg PO QHS 08/09/13 [History Last Taken Unknown] trazodone 150 mg tablet 100 mg PO DAILY 08/09/13 [History Last Taken Unknown] venlafaxine 150 mg capsule,extended release 24 hr 150 mg PO DAILY 08/09/13 [History Last Taken Unknown] acyclovir 400 mg tablet 400 mg PO BID #60 tabs 06/29/19 [Rx Last Taken Unknown] famotidine 40 mg tablet (Pepcid) 40 mg PO DAILY 10/16/20 [History Last Taken Unknown] norgestimate 0.25 mg-ethinyl estradiol 35 mcg tablet (Sprintec (28)) 1 tab PO QDAY #28 tabs 10/16/20 [Rx Last Taken Unknown] cephalexin 500 mg capsule 500 mg PO TID 7 days #21 caps 03/25/23 [Rx Last Taken Unknown] ondansetron 4 mg disintegrating tablet 4 mg PO TID PRN nausea and vomiting #21 tabs 03/25/23 [Rx Last Taken Unknown] oxycodone-acetaminophen 5 mg-325 mg tablet (Percocet) 1 tab PO Q6H PRN pain 3 days #12 tabs 03/25/23 [Rx Last Taken Unknown] Allergy/AdvReac Type Severity Reaction Status Date / Time prednisone Allergy Nausea/Vom/ Verified 03/24/23 23:28 Diarrhea amitriptyline AdvReac Other Verified 03/24/23 23:28 Family History Grandfather Cancer Dementia Surgical History S/P dilation and curettage S/P LEEP S/P tonsillectomy Social History (Updated 02/03/23 @ 15:[address] 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 ED Constitutional Constitutional ED: Denies chills or fever(s) ENT ENT ED: Denies sore throat Cardiovascular Cardiovascular: Denies chest pain Respiratory/Chest Respiratory/Chest: Denies cough or dyspnea Gastrointestinal Gastrointestinal: Reports abdominal pain and nausea; Denies diarrhea or vomiting Genitourinary Genitourinary ED: Denies dysuria or hematuria Musculoskeletal Musculoskeletal: Denies back pain or myalgias Integumentary Denies rash Neurologic Neurologic: Denies headache(s) Hematologic/Lymphatic Hematologic/Lymphatic: Denies easy bleeding or easy bruising EXAM Physical Exam Const Vital Signs: 03/25/23 01:53 03/25/23 05:44 Pulse Rate 87 Respiratory Rate 16 16 Blood Pressure 142/60 H Blood Pressure Mean 87 Positive well nourished and well developed General Appearance ED: well developed; Negative for pallor HEENT Reports moist mucous membranes HEENT Narrative: No signs of infection noted in the posterior pharynx Eyes PERRL and EOMs intact bilaterally General Eye ED: Negative for scleral icterus Neck supple Resp normal respiratory effort and clear to auscultation bilaterally Cardio regular rate and regular rhythm Rate: other Other Details: Radial and carotid pulses are equal and symmetric GI non-distended GI Narrative: Abdomen is soft and nondistended with normal active bowel sounds. Patient has diffuse pain with palpation without voluntary guarding or rigidity. No pulsatile mass or fluid wave. No obvious hernia noted. Auscultation: normoactive bowel sounds Palpation: soft Back/Spine no CVA tenderness Extremity normal to inspection Neuro oriented x3, CN's II-XII intact bilaterally and no sensory deficits noted Sensorium / Orientation: alert Motor Exam: strength 5/5 throughout Psych mental status grossly normal Skin no rashes or lesions noted General Skin Exam: Negative for jaundice or pallor MDM MDM MDM Narrative Medical decision making narrative: Patient presented to the ER mildly hypertensive otherwise with stable vitals. She reported an outpatient abdominal ultrasound which showed a liver hemangioma but no other findings. Differential diagnosis is for biliary colic versus acute cholecystitis versus pancreatitis versus colitis versus ventral hernia versus IBS versus UTI. As the patient's been having persistent pain for the past 2 to 3 weeks with negative outpatient ultrasound I did elect to perform basic laboratory studies and a CT scan with IV contrast. Labs revealed UTI but no signs of urosepsis or acute kidney injury. CT scan revealed no acute findings. On reevaluation she had improvement of her pain and her abdomen remained soft and nonsurgical. Therefore at this time there is no need for admission and patient can be discharged home and follow-up on an outpatient basis with potential GI referral to discuss EGD versus colonoscopy for further evaluation of her recurrent abdominal symptoms. History & Record Review Discussion w/independent historian: Patient Lab Data Attestation: I reviewed the patient's lab results. Labs: Laboratory Results - last 24 hr 03/24/23 23:35 Differential Comment SCANNED Reactive Lymphocytes RARE Lipase 32 Radiography Diagnostic Testing: Clinical Impression(s) from Imaging Studies Abdomen/Pelvis CT 03/25/23 03:34 IMPRESSION: 1. No evidence of acute intra-abdominal abnormality. 2. Subtle small low-attenuation lesion within liver most likely benign hemangioma (as described in prior ultrasound report). Differential also includes small hepatic adenoma. Follow-up as clinically warranted. 3. Mild colonic diverticulosis. Electronically Signed: Mahad Bassett MD at 5:05 EST , Discharge Plan Triage Chief Complaint: Abd Pain ED Provider: Eric Marquez Dx/Rx/DC Orders Clinical Impression: Nonspecific abdominal pain, UTI (urinary tract infection), Depression Instructions: Abdominal Pain, Urinary Tract Infections in Women Prescriptions: New cephalexin 500 mg capsule 500 mg PO TID 7 Days Qty: 21 0RF ondansetron 4 mg tablet,disintegrating 4 mg PO TID PRN (Reason: nausea and vomiting) Qty: 21 0RF oxycodone-acetaminophen [Percocet] 5-325 mg tablet 1 tab PO Q6H PRN (Reason: pain) 3 Days Qty: 12 0RF No Action famotidine [Pepcid] 40 mg tablet 40 mg PO DAILY norgestimate-ethinyl estradiol [Sprintec (28)] 0.25-35 mg-mcg tablet 1 tab PO QDAY Qty: 28 12RF venlafaxine 150 MG capsule 150 mg PO DAILY trazodone 150 MG tablet 100 mg PO DAILY ropinirole 0.5 MG tablet 0.5 mg PO QHS acyclovir 400 mg tablet 400 mg PO BID Qty: 60 12RF Primary Care Provider: Solange Delong Referrals: Solange Delong, SIGNAL OPERATOR LINGUIST-C [Primary Care Provider] - Activity Restrictions/Additional Instructions: Your urine showed signs of infection but there are no signs of kidney damage or obvious intestinal hernia or intestinal infection. Take antibiotic as directed to see if this helps resolve your symptoms. If symptoms persist return to the ER or talk your family doctor about a GI referral for potential colonoscopy Disposition Disposition: Home, Self Care Discharge Date/Time: 03/25/23 05:45
[2023-03-25 05:44] VITALS: BP 142/60; PULSE 87; RESP 16
== END 2023-03-25 05:45 | disposition home or self-care (01) ==
PROVIDERS: Emergency Provider Emergency Medicine; PCP Nurse Practitioner Family; Visit Provider Emergency Medicine
DX: R10.9 Unspecified abdominal pain (principal); N39.0 Urinary tract infection, site not specified; F32.A Depression, unspecified; Z87.891 Personal history of nicotine dependence; Z79.899 Other long term (current) drug therapy
CPT/HCPCS: 74177; 80053; 81001; 83690; 84703; 85025; 87086; 96365; 96366; 96375; 99285; J7030; Q9967; A4216; J2405

== ENCOUNTER 2023-03-29 17:59 | Emergency (ER) | payer SELFPAY ==
[2023-03-29 18:00] VITALS: BP 127/77; PULSE 114; RESP 20; TEMP 37; O2SAT 97; BMI 32.3
--- NOTE | 2023-03-29 18:54 | EX.ED.DYSGE1 ---
HPI <ANUSHKA Espana - Last Filed: 04/02/23 11:23> History of Present Illness Chief Complaint: Abd Pain Narrative Narrative: 47-year-old female states she developed abdominal pain on March 10. It was generalized cramping pain that occurs daily and comes and goes. Her PCP ordered an ultrasound which showed a liver hemangioma. She was evaluated in the ED on 03/24 and diagnosed with a UTI and is almost done taking Keflex. After her ED visit she followed up with her primary care who told her to take MiraLAX twice a day to reset her bowels and she started having frequent nonbloody loose stools around 5-9 times a day. She states her abdominal cramping worsened today and she felt nauseated and had to take Zofran twice. She is scheduled to see a GI doctor in May. No history of abdominal surgeries or colonoscopies. [facility] <ANUSHKA Espana - Last Filed: 04/02/23 11:23> [facility] Medical History Abnormal Pap smear of cervix Depression Fibromyalgia Genital herpes Restless leg syndrome Home Medications ropinirole 0.5 mg tablet 0.5 mg PO QHS 08/09/13 [History Last Taken Unknown] trazodone 150 mg tablet 100 mg PO DAILY 08/09/13 [History Last Taken Unknown] venlafaxine 150 mg capsule,extended release 24 hr 150 mg PO DAILY 08/09/13 [History Last Taken Unknown] acyclovir 400 mg tablet 400 mg PO BID #60 tabs 06/29/19 [Rx Last Taken Unknown] famotidine 40 mg tablet (Pepcid) 40 mg PO DAILY 10/16/20 [History Last Taken Unknown] norgestimate 0.25 mg-ethinyl estradiol 35 mcg tablet (Sprintec (28)) 1 tab PO QDAY #28 tabs 10/16/20 [Rx Last Taken Unknown] cephalexin 500 mg capsule 500 mg PO TID 7 days #21 caps 03/25/23 [Rx Last Taken Unknown] ondansetron 4 mg disintegrating tablet 4 mg PO TID PRN nausea and vomiting #21 tabs 03/25/23 [Rx Last Taken Unknown] oxycodone-acetaminophen 5 mg-325 mg tablet (Percocet) 1 tab PO Q6H PRN pain 3 days #12 tabs 03/25/23 [Rx Last Taken Unknown] dicyclomine 20 mg tablet 20 mg PO BID PRN abdominal pain 7 days #14 tabs 03/29/23 [Rx Last Taken Unknown] hydrocodone-acetaminophen 5-325mg 5mg-325mg 1 tab PO Q6H PRN pain 3 days #12 tabs 03/29/23 [Rx Last Taken Unknown] Allergy/AdvReac Type Severity Reaction Status Date / Time prednisone Allergy Nausea/Vom/ Verified 03/29/23 18:00 Diarrhea amitriptyline AdvReac Other Verified 03/29/23 18:00 Family History Grandfather Cancer Dementia Surgical History S/P dilation and curettage S/P LEEP S/P tonsillectomy Social History (Updated 02/03/23 @ 15:[address] 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 CVS: Negative for chest pain. Respiratory: Negative for shortness of breath. GI: Positive for abdominal pain, nausea, diarrhea. Negative for melena, hematochezia. : Negative for dysuria, hematuria or frequency. EXAM <ANUSHKA Espana - Last Filed: 04/02/23 11:23> Physical Exam Narrative Exam Narrative: CONST: Patient sitting in no acute distress. EYES: Normal inspection. NECK: Normal inspection. RESP: No respiratory distress, CTAB. CVS: Regular rate and rhythm, no murmur, no gallop. ABD: Soft with generalized tenderness, no guarding or rebound, nondistended. SKIN: Color normal, no rash, warm, dry, intact. EXTREMITIES: Normal appearance, no pedal edema. NEURO: Oriented x4. PSYCH: Normal affect. Const Vital Signs: 03/29/23 18:00 03/29/23 18:58 03/29/23 20:43 Temperature 98.6 F Temperature Source Temporal Pulse Rate 114 H Respiratory Rate 20 H Blood Pressure 127/77 H 134/73 H 137/71 H Blood Pressure Mean 93 93 93 Pulse Ox 97 Oxygen Delivery Method Room Air Room Air <Dr. Myke Prakash DO - Last Filed: 03/29/23 22:48> Physical Exam Const Vital Signs: 03/29/23 18:00 03/29/23 18:58 03/29/23 20:43 Temperature 98.6 F Temperature Source Temporal Pulse Rate 114 H Respiratory Rate 20 H Blood Pressure 127/77 H 134/73 H 137/71 H Blood Pressure Mean 93 93 93 Pulse Ox 97 Oxygen Delivery Method Room Air Room Air MDM <ANUSHKA Espana - Last Filed: 04/02/23 11:23> [facility] Narrative Medical decision making narrative: History gathered from: Patient and spouse Patient has had ongoing abdominal pain since March 10. She is taking Keflex for a UTI diagnosed on 03/24. She states the cramping pain worsened today and presents for evaluation. She appears well and nontoxic. Heart rate is 114, otherwise normal vital signs. She has a soft abdomen with generalized tenderness and no peritoneal signs. I reviewed her prior visit and urine culture showed no growth. She never had urinary symptoms so it was likely contaminated. CT on 03/25/23 showed no acute findings. The plan is to hydrate with IV fluid and Bentyl and repeat blood work. White count is 12.0 (previous visit 11.3). There is mild hypokalemia at 3.3 which was treated with p.o. replacement and normal renal function with BUN 7, creatinine of 0.85. Glucose is 114 with normal CO2 and anion gap. LFTs and lipase are WNL. UA has 100 leukocyte esterase, 5-10 WBCs, and 1+ bacteria but is contaminated with epithelials. Since her last urine culture showed no growth and she has no urinary symptoms I sent another culture and did not prescribe antibiotics. test is negative. She is tolerating p.o. intake at home and has Zofran as needed which she states works. I will prescribe Bentyl for her symptoms and I also recommended she stop the MiraLAX as it's likely causing her diarrhea. At this point with no localizing pain, no significant increase in leukocytosis, and a normal CT within the last 5 days I do not think she needs repeat imaging. She should follow-up with GI for colonoscopy. She was discharged in stable condition. Lab Data Attestation: I reviewed the patient's lab results. Labs: Laboratory Results - last 24 hr 03/29/23 03/29/23 18:50 20:00 WBC 12.0 H RBC 4.58 Hgb 14.5 Hct 43.1 MCV 94.1 MCH 31.7 MCHC 33.6 RDW Std Deviation 47.8 H RDW Coeff of Estella 13.9 Plt Count 235 MPV 10.3 Immature Gran % (Auto) 0.300 Neut % (Auto) 78.0 H Lymph % (Auto) 16.4 L [place] % (Auto) 4.7 Eos % (Auto) 0.4 Baso % (Auto) 0.2 Absolute Neuts (auto) 9.4 H Absolute Lymphs (auto) 1.97 Nucleated RBC % 0 Sodium 138 Potassium 3.3 L Chloride 107 Carbon Dioxide 26.0 Anion Gap 5 BUN 7 Creatinine 0.85 Estim Creat Clear Calc 72.04 Est GFR (MDRD) Af Amer 92 Est GFR (MDRD) Non-Af 76 BUN/Creatinine Ratio 8.3 L Glucose 114 H Calcium 8.3 L Total Bilirubin 0.20 AST 9 L ALT 16 Alkaline Phosphatase 56 Total Protein 7.0 Albumin 3.2 Globulin 3.8 Albumin/Globulin Ratio 0.8 L Lipase 19 Serum , Qual NEGATIVE Urine Color Yellow Urine Clarity Sl. Cloudy Urine pH 5.0 Ur Specific Garden 1.025 Urine Protein 30 H Urine Glucose (UA) Normal Urine Ketones 5 H Urine Occult Blood 25 H Urine Nitrite Negative Urine Bilirubin Negative Urine Urobilinogen Normal Ur Leukocyte Esterase 100 H Urine RBC 0-5 SEEN Urine WBC 5-10 SEEN Ur Squamous Epith Cells 5-10 SEEN Urine Bacteria 1+ Urine Mucus 0 SEEN <Dr. Myke Prakash, DO - Last Filed: 03/29/23 22:48> [facility] Narrative Medical decision making narrative: History gathered from: Patient and spouse Patient has had ongoing abdominal pain since March 10. She is taking Keflex for a UTI diagnosed on 03/24. She states the cramping pain worsened today and presents for evaluation. She appears well and nontoxic. Heart rate is 114, otherwise normal vital signs. She has a soft abdomen with generalized tenderness and no peritoneal signs. I reviewed her prior visit and urine culture showed no growth. She never had urinary symptoms so it was likely contaminated. CT on 03/25/23 showed no acute findings. The plan is to hydrate with IV fluid and Bentyl and repeat blood work. White count is 12.0 (previous visit 11.3). There is mild hypokalemia at 3.3 which was treated with p.o. replacement and normal renal function with BUN 7, creatinine of 0.85. Glucose is 114 with normal CO2 and anion gap. LFTs and lipase are WNL. UA has 100 leukocyte esterase, 5-10 WBCs, and 1+ bacteria but is contaminated with epithelials. Since her last urine culture showed no growth and she has no urinary symptoms I sent another culture and did not prescribe antibiotics. test is negative. She is tolerating p.o. intake at home and has Zofran as needed which she states works. I will prescribe Bentyl for her symptoms and I also recommended she stop the MiraLAX as it's likely causing her diarrhea. At this point with no localizing pain, no significant increase in leukocytosis, and a normal CT within the last 5 days I do not think she needs repeat imaging. She should follow-up with GI for colonoscopy. She was discharged in stable condition. I have personally performed a face to face assessment of the patient and have reviewed the LEVI Note. I performed a substantive portion of the visit including all aspects of the following. My pan findings include: History is sick 47-year-old female presenting to the emergency department with abdominal pain. Patient has had a protracted couple weeks with abdominal symptoms. She notes that today she is having intermittent cramping-like pain in the abdomen as well as diarrhea. I think this is most likely colonic discomfort. She is on antibiotics for a UTI as previously diagnosed. Today's urine is not concerning for infection. Her labs are reassuring with a white count of 12.2 weeks of symptoms. Liver lipase negative. test. CT of the abdomen pelvis I do not believe is necessarily needed today. Her CT scan from a few days ago was reviewed. She has also had gallbladder imaging in the past couple weeks. Patient will be treated with Bentyl. She may have some pain medication. She has nausea medication at home. Patient is comfortable with our plan. History & Record Review Discussion w/independent historian: Patient and Family Lab Data Labs: Laboratory Results - last 24 hr 03/29/23 03/29/23 18:50 20:00 WBC 12.0 H RBC 4.58 Hgb 14.5 Hct 43.1 MCV 94.1 MCH 31.7 MCHC 33.6 RDW Std Deviation 47.8 H RDW Coeff of Estella 13.9 Plt Count 235 MPV 10.3 Immature Gran % (Auto) 0.300 Neut % (Auto) 78.0 H Lymph % (Auto) 16.4 L [place] % (Auto) 4.7 Eos % (Auto) 0.4 Baso % (Auto) 0.2 Absolute Neuts (auto) 9.4 H Absolute Lymphs (auto) 1.97 Nucleated RBC % 0 Sodium 138 Potassium 3.3 L Chloride 107 Carbon Dioxide 26.0 Anion Gap 5 BUN 7 Creatinine 0.85 Estim Creat Clear Calc 72.04 Est GFR (MDRD) Af Amer 92 Est GFR (MDRD) Non-Af 76 BUN/Creatinine Ratio 8.3 L Glucose 114 H Calcium 8.3 L Total Bilirubin 0.20 AST 9 L ALT 16 Alkaline Phosphatase 56 Total Protein 7.0 Albumin 3.2 Globulin 3.8 Albumin/Globulin Ratio 0.8 L Lipase 19 Serum , Qual NEGATIVE Urine Color Yellow Urine Clarity Sl. Cloudy Urine pH 5.0 Ur Specific [place] 1.025 Urine Protein 30 H Urine Glucose (UA) Normal Urine Ketones 5 H Urine Occult Blood 25 H Urine Nitrite Negative Urine Bilirubin Negative Urine Urobilinogen Normal Ur Leukocyte Esterase 100 H Urine RBC 0-5 SEEN Urine WBC 5-10 SEEN Ur Squamous Epith Cells 5-10 SEEN Urine Bacteria 1+ Urine Mucus 0 SEEN Discharge Plan Triage Chief Complaint: Abd Pain ED Midlevel Provider: Светлана Sosa ED Provider: Myke Prakash Dx/Rx/DC Orders Clinical Impression: Diarrhea, Chronic abdominal pain, Acute hypokalemia Instructions: Abdominal Pain Prescriptions: New dicyclomine 20 mg tablet 20 mg PO BID PRN (Reason: abdominal pain) 7 Days Qty: 14 0RF hydrocodone-acetaminophen 5-325 mg tablet 1 tab PO Q6H PRN (Reason: pain) 3 Days Qty: 12 0RF No Action famotidine [Pepcid] 40 mg tablet 40 mg PO DAILY norgestimate-ethinyl estradiol [Sprintec (28)] 0.25-35 mg-mcg tablet 1 tab PO QDAY Qty: 28 12RF venlafaxine 150 MG capsule 150 mg PO DAILY trazodone 150 MG tablet 100 mg PO DAILY ropinirole 0.5 MG tablet 0.5 mg PO QHS cephalexin 500 mg capsule 500 mg PO TID 7 Days Qty: 21 0RF ondansetron 4 mg tablet,disintegrating 4 mg PO TID PRN (Reason: nausea and vomiting) Qty: 21 0RF oxycodone-acetaminophen [Percocet] 5-325 mg tablet 1 tab PO Q6H PRN (Reason: pain) 3 Days Qty: 12 0RF acyclovir 400 mg tablet 400 mg PO BID Qty: 60 12RF Primary Care Provider: Solange Delong Referrals: Solange Delong, UPHOLSTERY RESTORER-C [Primary Care Provider] - Disposition Disposition: Home, Self Care Discharge Date/Time: 03/29/23 22:04
[2023-03-29 18:56] LABS: Absolute Lymphocyte Count 1.97 X10^3/uL (0.83-4.51); Absolute Neutrophil Count 9.4 X10^3/uL (2.0-7.7); Basophil# 0.03 X10^3/uL; Basophil% 0.2 % (0-1); Eosinophil# 0.05 X10^3/uL; Eosinophils% 0.4 % (0-5); Hematocrit 43.1 % (37-47); Hemoglobin 14.5 g/dL (12.0-15.0); Lymphocyte # 1.97 X10^3/ul (0.83-4.51); Lymphocyte % 16.4 % (19-41); Mean Corp Hgb Conc 33.6 g/dL (32-36); Mean Corpuscular Hgb 31.7 pg (27.0-32.0); Mean Corpuscular Volume 94.1 fL (81-99); Mean Platelet Vol. 10.3 fl (6.2-12.0); Monocyte# 0.57 X10^3/uL; Monocyte% 4.7 % (0-10); NRBC Flagged by Analyzer 0 % (0-5); Neutrophil # 9.36 X10^3/uL (2.7-7.7); Platelet Count 235 K/mm3 (150-450); RBC Distribution Width CV 13.9 % (11.6-14.6); RBC Distribution Width SD 47.8 fl (35.1-43.9); Red Blood Count 4.58 M/mm3 (4.2-5.4)
[2023-03-29 18:58] VITALS: BP 134/73
[2023-03-29] MEDS: Dicyclomine 20 MG/2 ML Vial IM (18:59)
[2023-03-29] MEDS: 0.9% Normal Saline (1000mL) 1,000 ML 999 ML IV (19:00)
[2023-03-29 19:08] LABS: Internal QC Validated? YES +Cl - CLEAR BKGD; Pregnancy, Serum, hCG Quali. NEGATIVE Negative
[2023-03-29 19:16] LABS: ALB/GLOB Ratio 0.8 RATIO (0.9-2.4); AST(SGOT) 9 U/L (15-37); Alanine Aminotransfer ALT/SGPT 16 U/L (13-56); Albumin, Serum 3.2 g/dL (3.2-5.0); Alkaline Phosphatase 56 U/L (45-117); Anion Gap 5 (5-15); BUN 7 mg/dL (7-18); BUN/Creat Ratio 8.3 RATIO (10-20); Calcium,Total 8.3 mg/dL (8.5-10.1); Chloride 107 mmol/L (98-107); Creatinine, Serum 0.85 mg/dL (0.55-1.02); EST Glomerular Filtration Rate 76 mL/min (>60); Est Glom Filt Rate - Afr Amer 92 mL/min (>60); Estimated Creatinine Clearance 72.04 ml/min; Globulin 3.8 g/dL (2.2-4.2); Glucose 114 mg/dL (74-106); Lipase 19 U/L (13-75); Potassium 3.3 mmol/L (3.5-5.1); Sodium Level 138 mmol/L (136-145)
[2023-03-29 20:03] LABS: Mucous, Urine 0 SEEN /hpf (<or=2+)
[2023-03-29 20:08] LABS: Color, Urine Yellow (Yellow); Glucose, Dipstick Normal (Normal); Ketone-Dipstick 5 mg/dl (Negative); Leukocyte Esterase-Dipstick 100 /ul (Negative); Nitrite-Dipstick Negative (Negative); Occult Blood-Urine 25 /ul (Negative); Protein-Dipstick 30 mg/dl (Negative); Specific Gravity, Urine 1.025 (1.002-1.030); Urine Bilirubin Dipstick Negative (Negative); Urine Clarity Sl. Cloudy (Clear); Urine Urobilinogen Normal (Normal)
[2023-03-29 20:27] LABS: Bacteria 1+ /hpf (None Seen); Red Blood Cells-Urine 0-5 SEEN /hpf (0-5); White Blood Cells 5-10 SEEN /hpf (0-5)
[2023-03-29 20:28] LABS: Squamous Epithelial Cells - UA 5-10 SEEN /hpf (5-10)
[2023-03-29] MEDS: Potassium Chloride Oral Tablet 20 MEQ 40 MEQ PO (20:38)
[2023-03-29 20:43] VITALS: BP 137/71
[2023-03-29] MEDS: Ketorolac 15 MG/ML Vial IV (20:47)
== END 2023-03-29 22:04 | disposition home or self-care (01) ==
PROVIDERS: Physician Assistant; Emergency Provider Emergency Medicine; PCP Nurse Practitioner Family; Visit Provider Emergency Medicine
DX: R19.7 Diarrhea, unspecified (principal); R10.9 Unspecified abdominal pain; E87.6 Hypokalemia; F17.210 Nicotine dependence, cigarettes, uncomplicated; F32.A Depression, unspecified; Z79.899 Other long term (current) drug therapy
CPT/HCPCS: 80053; 81001; 83690; 84703; 85025; 87086; 96372; 96374; 99284; J7030; A4216

== ENCOUNTER → 2023-05-24 | Outpatient (CLI) | payer SELFPAY ==
--- OUTSIDE RECORDS SUMMARY | 2023-05-24 16:42 | XMS RPT_ITS | CCD ---
Author Name Unknown Address [address] [place] [address] Organization [facility] Care Team Providers Care Rn Transport Name Role Phone ASCENCION Maxwell RN, Adrienne Hansen RN RN, Adrienne Galindo MD, Ghada Webster Unavailable [phone] Allergies Allergy Classification Reported Allergen(s) Allergy Type Date of Onset Reaction(s) Facility (3 sources) amitriptyline Drug Allergy [facility] (3 sources) predniSONE Drug Allergy [facility] Medications Completed/Discontinued Medications Medication Drug Class(es) Dates Sig (Normalized) Sig (Original) acyclovir 400 mg oral tablet (3 sources) Herpesvirus Nucleoside Analog DNA Polymerase Inhibitor, Herpes Simplex Virus Nucleoside Analog DNA Polymerase Inhibitor, Herpes Zoster Virus Nucleoside Analog DNA Polymerase Inhibitor Start: 03-01-2017 take 1 tablet by mouth once daily ACYCLOVIR 400 MG TABS One tablet by mouth daily ACYCLOVIR [id number] Ghada Barney MD cholecalciferol 5000 unt oral tablet (3 sources) Vitamin D Start: 03-01-2017 VITAMIN D3 5000 UNIT TABS CHOLECALCIFEROL [id number] Ghada Barney MD LEVONORGEST-ETH ESTRAD 91-DAY (1 source) Progestin, Estrogen, Progestin-contain ing Intrauterine Device Start: 07-15-2016 CAMRESE 0.15-0.03 &0.01 MG TABS LEVONORGEST-ETH ESTRAD 91-DAY [id number] Judy Alvarez fluconazole 150 mg oral tablet (3 sources) Azole Antifungal Start: 03-01-2017 DIFLUCAN 150 MG TABS take 1 po now FLUCONAZOLE [id number] Ghada Barney MD [facility]GE[facility] ESTRAD 91-DAY (2 sources) Start: 07-15-2016 CAMRESE 0.15-0.03 &0.01 MG TABS LEVONORGEST-ETH ESTRAD 91-DAY [id number] Judy Sherman Antonio magnesium oxide 500 mg oral capsule (3 sources) Start: 03-01-2017 MAGNESIUM OXIDE 500 MG CAPS MAGNESIUM OXIDE [id number] Ghada Barney MD MULTIPLE VITAMINS-MINERALS (3 sources) Start: 07-15-2016 MULTIVITAMIN ADULT TABS MULTIPLE VITAMINS-MINERALS [id number] KitaWhit Alvarez norethindrone 0.35 mg oral tablet (3 sources) Start: 07-15-2016 take 1 tablet by mouth once daily MAURA 0.35 MG TABS One tablet by mouth daily NORETHINDRONE [id number] Ghada Barney MD raNITIdine 75 mg oral tablet (6 sources) Histamine-2 Receptor Antagonist Start: 07-15-2016 End: 03-01-2017 ZANTAC 75 75 MG TABS RANITIDINE HCL [id number] Judy Alvarez rOPINIRole 0.5 mg oral tablet (9 sources) Nonergot Dopamine Agonist Start: 03-01-2017 REQUIP 0.5 MG TABS ROPINIROLE HCL [id number] Ghada Barney MD Problems Active Problems Problem Classification Problem Date Documented Date Episodic/Chronic Unclassified (2 sources) Screening for malignant neoplasm of cervix ; Translations: [Encounter for screening for malignant neoplasm of cervix] Onset: 03-01-2017 03-01-2017 Unclassified (2 sources) Gynecologic examination ; Translations: [Encounter for gynecological examination (general) (routine) without abnormal findings] Onset: 03-01-2017 03-01-2017 Unclassified (2 sources) Screening mammography ; Translations: [Encounter for screening mammogram for malignant neoplasm of breast] Onset: 03-01-2017 03-01-2017 Unclassified (1 source) Procedure carried out on subject; Translations: [Encounter for screening for human papillomavirus (HPV)] Onset: 03-01-2017 03-01-2017 Past or Other Problems Problem Classification Problem Date Documented Date Episodic/Chronic Immunizations and screening for infectious disease (2 sources) Encounter for screening for human papillomavirus (HPV); Translations: [Encounter for screening for human papillomavirus (HPV)] Onset: 03-01-2017 03-01-2017 Episodic Other connective tissue disease (3 sources) Radial styloid tenosynovitis; Translations: [Radial styloid tenosynovitis [de Quervain]] Onset: 07-15-2016 07-15-2016 Episodic Other non-traumatic joint disorders (3 sources) Pain in elbow; Translations: [Pain in right elbow] Onset: 07-15-2016 07-15-2016 Episodic Results Test Name Value Interpretation Reference Range Facil ity Vital Signs Date Time Vital Sign Value Performing Clinician Faci lity 03-01-2017 10:54-0400 BMI (Body Mass Index) 35.14 kg/m2 Ghada Barney MD [facility] 03-01-2017 10:54-0400 Body Temperature 96.8 [degF] Ghada Braney MD [facility] 03-01-2017 10:54-0400 BP Diastolic 88 mm[Hg] Ghada Barney MD [facility] 03-01-2017 10:54-0400 BP Systolic 125 mm[Hg] Ghada Barney MD [facility] 03-01-2017 10:54-0400 Height 165.1 cm Ghada Barney MD [facility] 03-01-2017 10:54-0400 Pulse (Heart Rate) 108 /min Ghada Barney MD [facility] 03-01-2017 10:54-0400 Respiratory Rate 16 /min Ghada Barney MD [facility] 03-01-2017 10:54-0400 Weight 95.8 kg Ghada Barney MD [facility] Procedures Date Procedure Procedure Detail Performing Clinician Start: 03-01-2017 Gynecologic examination Leaf Conditioner annual exam Ghada amezcua MD Start: 03-01-2017 End: 03-08-2017 Mammogram, screening Ghada maldonado MD Work Phone: Start: 03-01-2017 Screening for malignant neoplasm of cervix Screening for cervical cancer Ghada Barney MD Start: 03-01-2017 Screening mammography Screening mammogram for breast cancer Ghada Barney MD Start: 03-01-2017 End: 03-01-2017 Alcoholism counseling Ghada Barney MD Start: 03-01-2017 End: 03-01-2017 Documentation of current medications Ghada Barney MD Start: 07-15-2016 End: 07-15-2016 Arthrocentesis aspir&/inj interm jt/burs w/o us Judy Alvarez Work Phone: Plan of Treatment Date Care Activity Detail Author Start: 03-01-2017 End: 03-08-2017 Mammogram, screening Mammogram, Screening, both breasts [facility] Start: 03-01-2017 End: 03-01-[address] [facility] Start: 07-15-2016 End: 07-15-2016 Radex elbow complete minimum 3 views X-Ray, Elbow [facility] Additional Source Comments FOR RECORDS PERTAINING TO PATIENTS WHO ARE OR HAVE BEEN ENROLLED IN A CHEMICAL DEPENDENCY/SUBSTANCEABUSE PROGRAM, SOME INFORMATION MAY BE OMITTED. This clinical summary was aggregated from multiple sources. Caution should be exercised in using it in the provision of clinical care. This summary normalizes information from multiple sources, and as a consequence, information in this document may materially change the coding, format and clinical context of patient data. In addition, data may be omitted in some cases. CLINICAL DECISIONS SHOULD BE BASED ON THE PRIMARY CLINICAL RECORDS. [facility] [email or web address]. provides no warranty or guarantee of the accuracy or completeness of information in this document.
[2023-05-26 16:09] LABS: Endomysial Antibody IgA Negative (Negative); Immunoglobulin A 99 mg/dL (87-352); t-Transglutaminase IgA <2 U/mL (0-3)
== END | disposition home or self-care (01) ==
PROVIDERS: PCP Nurse Practitioner Family; Referring Provider Internal Medicine Gastroenterology; Visit Provider Internal Medicine Gastroenterology
DX: R10.9 Unspecified abdominal pain (principal); R19.7 Diarrhea, unspecified
CPT/HCPCS: 36415; 82784; 83516; 86140; 86255

== ENCOUNTER → 2024-07-20 | Outpatient (CLI) | payer OTHER, SELFPAY ==
[2024-07-20 13:52] LABS: Vitamin B12 428 pg/mL (180-914)
== END | disposition home or self-care (01) ==
LOC: VSLAB 10:33
PROVIDERS: PCP Family Medicine; Visit Provider Family Medicine
DX: E53.8 Deficiency of other specified B group vitamins (principal); R53.83 Other fatigue
CPT/HCPCS: 36415; 82607

== ENCOUNTER → 2024-08-07 | Outpatient (CLI) | payer OTHER, SELFPAY ==
--- NOTE | 2024-08-07 10:33 | BI_ITS ---
EXAM: SCRN MAMM (CAD)W/FAY BILAT DATE: 08/07/2024 CLINICAL HISTORY: F, Age 49 y/o , SCREENING MAMMOGRAM Mother with breast cancer. BREAST CANCER RISK ASSESSMENT: Not assessed. TECHNIQUE: Bilateral screening digital breast tomosynthesis with 2D and 3D images. Computer aided detection. COMPARISON: Prior exam(s) dated October 19, 2022.. FINDINGS: TISSUE DENSITY: The breast tissue is almost entirely fatty. Bilateral Breast Mammographic Findings: No significant masses, calcifications or other abnormalities are identified. No suspicious masses, areas of developing architectural distortion, or suspicious calcifications. There has been no significant interval change. BI/SCRN MAMM (CAD)W/FAY BILAT IMPRESSION: Right Breast: BIRADS 1 NEGATIVE. Left Breast: BIRADS 1 NEGATIVE. OVERALL FINAL ASSESSMENT: BIRADS 1 NEGATIVE RECOMMENDATION: Routine annual follow-up in 1 Year A letter with findings and recommendations will be mailed to the patient. Reading Location: [facility]
== END | disposition home or self-care (01) ==
LOC: OPBI 10:32
PROVIDERS: PCP Family Medicine; Referring Provider Obstetrics & Gynecology; Visit Provider Obstetrics & Gynecology
DX: Z12.31 Encounter for screening mammogram for malignant neoplasm of breast (principal)
CPT/HCPCS: 77063; 77067

== ENCOUNTER → 2024-11-27 | Outpatient (CLI) | payer SELFPAY ==
[2024-11-27 13:25] LABS: Follicle Stimulating Hormone 40.8 mIU/mL
[2024-11-30 02:07] LABS: Anti-Mullerian Hormone,Serum < 0.015 ng/mL (.)
== END | disposition home or self-care (01) ==
LOC: BWCLAB 11:55
PROVIDERS: PCP Family Medicine; Referring Provider Obstetrics & Gynecology; Visit Provider Obstetrics & Gynecology
DX: N95.1 Menopausal and female climacteric states (principal)
CPT/HCPCS: 36415; 82670; 83001; 83516